=== PATIENT | male | born 1975 | race Two or more races ===

== ENCOUNTER 2019-09-01 09:04 | Emergency (ER) | payer OTHER ==
[~2019-09-01] VITALS: Ht 180.3 cm; Wt 113.4 kg
[2019-09-01] MEDS ORDERED: COZAAR100 MG PO (09:22)
[2019-09-01] MEDS ORDERED: MICROZIDE12.5 MG PO (09:23)
== END 2019-09-01 13:02 | disposition home or self-care (01) ==
LOC: ER 09:04
DX: K64.8 Other hemorrhoids (principal)